=== PATIENT | female | born 1985 | race Caucasian/White ===

== ENCOUNTER 2016-07-13 15:28 | Emergency (ER) | payer MEDICARE, MEDICAID ==
[2016-07-13 17:19] LABS: Mono Internal Control QC Line Present
[2016-07-13] MEDS ORDERED: Clarithromycin TAB* 250 MG PO ONE (17:37)
[2016-07-13] MEDS ORDERED: Ibuprofen TAB* 800 MG PO ONE (17:38)
--- NOTE | 2016-07-13 17:44 | ED ---
I, Oh,Soohyun, scribed for Seth Pierson MD on 07/13/16 at 1626 . Throat Pain/Nasal Congestion - HPI Summary HPI Summary: This 31 y/o female presents to ED for moderate to severe sore throat since this morning. Pt reports general "achy" myalgia since 2 days ago. "I slept all day yesterday". Swallowing makes throat pain worse. She reports possible sick contact from her child who was dx with strep throat and was under abx tx. PMHx includes scoliosis, asthma, and von Willebrand. Pt is nondrinker and current smoker. FHx is positive for DM. - History of Current Complaint Chief Complaint: EDThroatPain Time Seen by Provider: 07/13/16 16:01 Hx Obtained From: Patient, Medical Records Onset/Duration: Gradual Onset Severity: Moderate Cough: None Related History: Smoking - Allergies/Home Medications Allergies/Adverse Reactions: Allergies Allergy/AdvReac Type Severity Reaction Status Date / Time Penicillin G Allergy Intermediate Difficulty Verified 07/13/16 15:32 Breathing PMH/Surg Hx/FS Hx/Imm Hx Endocrine/Hematology History: Reports: Other Endocrine/Hematological Disorders - Type 1 Von Willebrand Disease Denies: Hx Diabetes, Hx Thyroid Disease Comment Only: Hx Anticoagulant Therapy - Von Willenbrand's Syndrome Cardiovascular History: Denies: Hx Congestive Heart Failure, Hx Hypertension, Hx Pacemaker/ICD Comment Only: Other Cardiovascular Problems/Disorders - brother dx with lung cancer Respiratory History: Reports: Hx Asthma Denies: Hx Chronic Obstructive Pulmonary Disease (COPD) GI History: Denies: Hx Ulcer History: Denies: Hx Dialysis, Hx Renal Disease Musculoskeletal History: Reports: Hx Scoliosis Sensory History: Denies: Hx Hearing Aid Neurological History: Reports: Hx Headaches Denies: Hx Dementia, Hx Seizures, Other Neuro Impairments/Disorders Psychiatric History: Denies: Hx Panic Disorder, Hx Substance Abuse - Surgical History Surgery Procedure, Year, and Place: jaw wired bilateral 1996 Infectious Disease History: No Infectious Disease History: Denies: Hx Hepatitis, Hx Human Immunodeficiency Virus (HIV), Traveled Outside the [place] in Last 30 Days - Family History Known Family History: Positive: Diabetes, Blood Disorder - Von Willebrand, Other - [place] - Social History Alcohol Use: None Hx Substance Use: No Substance Use Type: Reports: None Hx Tobacco Use: Yes Smoking Status (MU): Heavy Every Day Tobacco Smoker Type: Cigarettes Amount Used/How Often: 1/2 PPD Review of Systems Negative: Fever Positive: Sore Throat Positive: Myalgia - general Negative: Anxious, Depressed All Other Systems Reviewed And Are Negative: Yes Physical Exam - Summary Physical Exam Summary: Vital signs: Reviewed Gen.: Patient is a well-developed and nourished female in no acute distress. Patient is lying comfortably on the stretcher. Head: Normacephalic and atraumatic Eyes: PERRLA, EOMI x2. Ears: Right and Left ear canal and TM WNL Nose and mouth: Positive pharyngeal erythema and exudate. Neck: Supple, no lymphadenopathy, no JVD Lungs: CTA B/L CVS: S1 & S2 present. No murmurs appreciated. ABDOMEN: Soft, non-tender. No signs of distention. No rebound no guarding, and no masses palpated. Bowel sounds are normal. EXTREMITIES: FROM in all major joints, no edema, no cyanosis or clubbing. NEURO: Alert and oriented x 3. No acute neurological deficits. Speech is normal and follows commands. SKIN: Dry and warm Triage Information Reviewed: Yes Vital Signs On Initial Exam: Initial Vitals Temp Pulse Resp BP Pulse Ox 97.8 F 91 16 141/74 100 07/13/16 15:32 07/13/16 15:32 07/13/16 15:32 07/13/16 15:32 07/13/16 15:32 Vital Signs Reviewed: Yes Diagnostics - Vital Signs Vital Signs Temp Pulse Resp BP Pulse Ox 07/13/16 15:32 97.8 F 91 16 141/74 100 - Laboratory Lab Results: Monospot -- negative Rapid Strep -- negative Lab Statement: Any lab studies that have been ordered have been reviewed, and results considered in the medical decision making process. Re-Evaluation - Re-Evaluation First Eval Re-Evaluation Time: 17:41 Comment: MD in room to update pt on monospot and rapid strep and discuss the plan of care involving discharge and outpatient f/u. EENT Course/Dx - Course Assessment/Plan: This 31 y/o female presents to ED for moderate to severe sore throat since this morning. Pt reports general "achy" myalgia since 2 days ago. "I slept all day yesterday". Swallowing makes throat pain worse. She reports possible sick contact from her child who was dx with strep throat and was under abx tx. PMHx includes scoliosis, asthma, and von Willebrand. Pt is nondrinker and current smoker. FHx is positive. Rapid strep negative. Infectious mononucleosis negative. Since patient was exposed to strep and her pharynx and tonsils are erythematous, with which patches she will treated with clarithromycin since she is allergic to penicillin. I discussed all the findings and test results with the patient. Patient was instructed to return to the emergency room immediately if any of the symptoms return or worsens. Plan of care was discussed with the patient and understands and agrees. All questions were answered at patient satisfaction. There were no further complaints or concerns. Lung exam before discharge: CTA B/L. Good air exchange. No wheezing or crackles heard. CVS: S1 and S2 present. No murmurs appreciated. Patient is alert and oriented x 3. Patient is hemodynamically stable. Patient will be discharged home with follow up PCP in the next 2-3 days - Differential Diagnoses Differential Diagnoses: Other - URI, Pharyngitis, tonsillitis, mononucleosis - Diagnoses Provider Diagnoses: Pharyngitis Discharge - Discharge Plan Condition: Stable Disposition: HOME Prescriptions: Clarithromycin TAB* [Biaxin 250 MG TAB*] 250 mg PO BID #20 tab Patient Education Materials: Pharyngitis (ED), Clarithromycin (By mouth) Referrals: Darinel Hancock NP [Primary Care Provider] - 2 Days The documentation as recorded by the Silvio harris Soohyun accurately reflects the service I personally performed and the decisions made by , Seth Pierson MD.
[2016-07-13] MEDS ORDERED: Famotidine TAB* 20 MG PO ONE (18:26)
[2016-07-13 18:53] VITALS: BP 140/70
== END 2016-07-13 18:52 | disposition home or self-care (01) ==
LOC: ED 15:28
DX: J02.9 Acute pharyngitis, unspecified (principal); M79.1 Myalgia; F17.210 Nicotine dependence, cigarettes, uncomplicated
CPT/HCPCS: 36415; 86308; 87651; 99282; A9270-GY

== ENCOUNTER 2016-07-23 14:04 | Emergency (ER) | payer MEDICARE, MEDICAID ==
[2016-07-23 14:33] VITALS: BP 106/80
--- NOTE | 2016-07-23 15:03 | UC ---
Ear Complaint HPI - HPI Summary HPI Summary: RIGHT EAR PAIN FOR TWO WEEKS. HAS BEEN ON AZITHROMYCIN, THEN LEVOQUIN. NO CHANGE IN EAR PAIN. - History of Current Complaint Chief Complaint: UCEar Stated Complaint: EAR PAIN Time Seen by Provider: 07/23/16 14:42 Hx Obtained From: Patient, Family/Fructose Loader Hx Last Menstrual Period: unknown ?: Yes Onset/Duration: Gradual Onset, Lasting Weeks, Still Present Severity Initially: Moderate Severity Currently: Moderate Associated Signs/Symptoms: Positive: URI Symptoms - TWO WEEKS OF ONGOING RIGHT EAR PAIN - Allergies/Home Medications Allergies/Adverse Reactions: Allergies Allergy/AdvReac Type Severity Reaction Status Date / Time Penicillin G Allergy Intermediate Difficulty Verified 07/23/16 14:18 Breathing Home Medications: Home Medications Budesonide/Formote 80/4.5(NF) [Symbicort 80/4.5 (NF)] mg PO DAILY 07/23/16 [ History] DULoxetine DR CAP* [Cymbalta CAP*] 30 mg PO DAILY 07/23/16 [History Confirmed ] Omeprazole CAP* [Prilosec CAP* 20 MG] 20 mg PO DAILY 07/23/16 [History Confirmed 07/23/16] PMH/Surg Hx/FS Hx/Imm Hx Previously Healthy: Yes Endocrine History Of: Denies: Diabetes, Thyroid Disease Cardiovascular History Of: Denies: Cardiac Disorders, Hypertension, Pacemaker/ICD, Congestive Heart Failure Respiratory History Of: Reports: Asthma Denies: COPD GI/ History Of: Denies: Gastroesophageal Reflux, Ulcer, Renal Disease Neurological History Of: Denies: CVA, Dementia, Seizures Other History Of: Comment Only: Anticoagulant Therapy - Von Willenbrand's Syndrome - Surgical History Surgical History: Yes Surgery Procedure, Year, and Place: jaw wired bilateral 1996 - Family History Known Family History: Positive: Diabetes, Blood Disorder - Von Willebrand, Other - [place] - Social History Occupation: Disabled Lives: With Family Alcohol Use: Rare Substance Use Type: None Smoking Status (MU): Heavy Every Day Tobacco Smoker Type: Cigarettes Amount Used/How Often: 1/2 PPD Household Exposure Type: Cigarettes Cessation Counseling: Counseled 3+Min - 10 Min Review of Systems Constitutional: Negative Skin: Negative Eyes: Negative ENT: Ear Ache Respiratory: Negative Cardiovascular: Negative Gastrointestinal: Negative Genitourinary: Negative Motor: Negative Neurovascular: Negative Musculoskeletal: Negative Neurological: Negative Psychological: Negative All Other Systems Reviewed And Are Negative: Yes Physical Exam Triage Information Reviewed: Yes Appearance: Well-Appearing, Well-Nourished, Pain Distress Vital Signs: Initial Vital Signs Temp 98.7 F 07/23/16 14:10 Pulse 94 07/23/16 14:10 Resp 18 07/23/16 14:10 BP 106/80 07/23/16 14:10 Pulse Ox 98 07/23/16 14:10 Vital Signs Reviewed: Yes Eye Exam: Normal ENT: Positive: TM bulging - RIGHT EAR, TM dull, TM red, Other: - RIGHT EAR EDEMA OF EAC Dental Exam: Normal Neck exam: Normal Neck: Positive: Supple, Nontender Respiratory Exam: Normal Respiratory: Positive: Chest non-tender, Lungs clear, Normal breath sounds Cardiovascular Exam: Normal Cardiovascular: Positive: RRR, No Murmur, Pulses Normal, Brisk Capillary Refill Abdominal Exam: Normal Musculoskeletal Exam: Normal Neurological Exam: Normal Psychological Exam: Normal Skin Exam: Normal Ear Complaint Course/Dx - Differential Dx/Diagnosis Differential Diagnosis/HQI/PQRI: Otitis Externa, Otitis Media, URI Provider Diagnoses: RIGHT EAR OTITIS MEDIA/OTITIS EXTERNA Discharge - Discharge Plan Condition: Stable Disposition: HOME Prescriptions: Clindamycin Cap(NF) [Cleocin 300 mg Cap(NF)] 300 mg PO TID #21 cap Neomyc/Polym/HC 1% OTIC SUSP* [Cortisporin Otic Susp 1%*] 4 drop LEFT EAR QID # 1 btl Nystatin SUSPENSION* 100,000 unit MT BID #20 ml Patient Education Materials: Otitis Externa (ED), Oral Candidiasis (ED), Otitis Media (ED) Referrals: Ivan Escobdeo MD [Medical Doctor] - Darinel Hancock NP [Primary Care Provider] -
== END 2016-07-23 15:15 | disposition home or self-care (01) ==
LOC: UCEAST 14:04
DX: H66.91 Otitis media, unspecified, right ear (principal); H60.91 Unspecified otitis externa, right ear; Z88.0 Allergy status to penicillin; F17.210 Nicotine dependence, cigarettes, uncomplicated
CPT/HCPCS: 99212; G0463

== ENCOUNTER 2016-09-25 09:03 | Emergency (ER) | payer MEDICARE, MEDICAID ==
[2016-09-25] MEDS ORDERED: NS 0.9% 1000 ML* 2,000 ML IV ONE (10:20)
[2016-09-25 10:50] LABS: Urine Bacteria Absent (Absent); Urine Bilirubin Negative (Negative); Urine Glucose Negative (Negative); Urine Nitrite Negative (Negative)
[2016-09-25] MEDS ORDERED: NS 0.9% 1000 ML* 1,000 ML IV ONE (11:10)
[2016-09-25] MEDS ORDERED: Morphine INJ* 4 MG/ML 1 ML SYRINGE IV ONE (11:10)
[2016-09-25] MEDS ORDERED: Ondansetron INJ* 2 MG/ML VIAL IV ONE (11:10)
[2016-09-25 11:27] LABS: Hematocrit 41 % (35-47); Hemoglobin 13.6 g/dl (12.0-16.0); Mean Corpuscular HGB Conc 33 g/dl (31-36); Mean Corpuscular Hemoglobin 29 pg (27-31); Mean Corpuscular Volume 86 fL (80-97); Mean Platelet Volume 7 um3 (7.4-10.4); Red Blood Count 4.75 10^6/ul (4.0-5.4); Red Cell Distribution Width 15 % (10.5-15); White Blood Count 10.3 10^3/ul (3.5-10.8)
[2016-09-25 11:46] LABS: ALT 13 U/L (7-52); AST 17 U/L (13-39); Albumin 3.9 g/dL (3.2-5.2); Alkaline Phosphatase 124 U/L (34-104); Amylase 39 U/L (29-103); Anion Gap 8 mmol/L (2-11); BUN/Creatinine Ratio 16.1 (8-20); Blood Urea Nitrogen 10 mg/dL (6-24); C Reactive Protein 107.76 mg/L (< 5.00); CO2 Carbon Dioxide 24 mmol/L (22-32); Calcium 9.1 mg/dL (8.6-10.3); Chloride 103 mmol/L (101-111); EGFR African American 143.5 (>60); EGFR Non-African American 111.6 (>60); Globulin 3.1 g/dL (2-4); Glucose 107 mg/dL (70-100); Lipase 27 U/L (11.0-82.0); Potassium 3.2 mmol/L (3.5-5.0); Sodium 135 mmol/L (133-145)
[2016-09-25 12:48] LABS: Vitamin B12 284 pg/mL (180-914)
[2016-09-25 14:36] VITALS: BP 98/61
--- NOTE | 2016-09-26 13:09 | CONSULT ---
Consult Consult: Ms. Cat's stool C&S grew out Salmonella so i sent a script for Justo and we will call her to let her know.
--- NOTE | 2016-09-27 10:30 | ED ---
Abdominal Pain/Female - HPI Summary HPI Summary: Pt here w/ chronic recurring ab pain associated w/ nausea, vomiting and diarrhea. This has been going on for over 1 year now. She reports being seen by PCP, ED providers at [facility] and a GI specialist. She has had labs, and U/ S and TVUS as well as colonoscopy all w/o definitive cause of her sx. She has been rx'd omeprazole but has not been able to take this d/t daily nausea and vomiting. She does not have an anti-emetic medication. She reports pain is not better or worse w/ anything she's tried including ibuprofen, acetaminophen, heat packs, omeprazole. She denies fever, chills, urinary sx, flank pain vaginal pain/irritation/discharge. She does note a h/o PCOS w/o treatment - was told there's nothing to do for this by PCP a few years ago. She admits periods are few and far between. TVUS reveals multiple follicles. Asked pt to think back to when this first started. She reports no new foods, beverages, water sources or sick contacts. Her appetite has been poor since this happened. Admits to heavy caffeine use, smoking and migraines. She is trying to cut back on smoking and caffeine. Also admits to heavy antibiotic use for various URI's - states she was placed on one after another after another over the past year. No known h/o c. diff and has not been tested for this but records do reveal neg h. pylori. No personal nor fam h/o Crohn's, UC, IBS, etc - History of Current Complaint Chief Complaint: EDAbdPain Stated Complaint: ABD PAIN/VOMITING/DIARRHEA Time Seen by Provider: 09/25/16 10:45 Hx Obtained From: Patient, Family/Cms Expert - female partner Hx Last Menstrual Period: unknown Pain Intensity: 0 Pain Scale Used: 0-10 Numeric Allergies/Adverse Reactions: Allergies Allergy/AdvReac Type Severity Reaction Status Date / Time Penicillins Allergy Difficulty Verified 08/15/16 14:23 Breathing PMH/Surg Hx/FS Hx/Imm Hx Previously Healthy: No - sx x 1 year Endocrine/Hematology History: Reports: Other Endocrine/Hematological Disorders - Type 1 Von Willebrand Disease, PCOS Denies: Hx Diabetes, Hx Thyroid Disease Comment Only: Hx Anticoagulant Therapy - Von Willenbrand's Syndrome Cardiovascular History: Denies: Hx Congestive Heart Failure, Hx Hypertension, Hx Pacemaker/ICD Comment Only: Other Cardiovascular Problems/Disorders - brother dx with lung cancer Respiratory History: Reports: Hx Asthma Denies: Hx Chronic Obstructive Pulmonary Disease (COPD) GI History: Reports: Hx Gastroesophageal Reflux Disease - Rx'd ompeprazole Denies: Hx Cirrhosis, Hx Crohn's Disease, Hx Diverticulosis, Hx Gall Bladder Disease, Hx Gastrointestinal Bleed, Hx Hiatal Hernia, Hx Irritable Bowel, Hx Jaundice, Hx Obstructive Bowel, Hx Ileostomy, Hx Ulcer, Other GI Disorders History: Denies: Hx Dialysis, Hx Kidney Infection, Hx Kidney Stones, Hx Renal Disease Musculoskeletal History: Reports: Hx Scoliosis Sensory History: Denies: Hx Hearing Aid Neurological History: Reports: Hx Headaches - rx'd med but hasn't started yet Denies: Hx Dementia, Hx Seizures, Other Neuro Impairments/Disorders Psychiatric History: Reports: Hx Panic Disorder - SEVERE ANXIETY Denies: Hx Substance Abuse - Surgical History Surgery Procedure, Year, and Place: jaw wired bilateral 1996-REMOVED. CERVICAL BIOPSY. STOMACH BIOPSY. TEETH REMOVED Infectious Disease History: No Infectious Disease History: Denies: Hx Clostridium Difficile, Hx Hepatitis, Hx Human Immunodeficiency Virus (HIV), Hx of Known/Suspected MRSA, Hx Shingles, Hx Known/Suspected VRE, Traveled Outside the [place] in Last 30 Days - Family History Known Family History: Positive: Diabetes, Blood Disorder - Von Willebrand, Other - [place] - Social History Lives: With Family Alcohol Use: Rare Hx Substance Use: No Substance Use Type: Reports: None Hx Tobacco Use: Yes Smoking Status (MU): Current Every Day Smoker Type: Cigarettes Amount Used/How Often: 1/2 PPD Review of Systems Positive: Fatigue. Negative: Fever, Chills Eyes: Negative ENT: Other - chronic URI sx - currently has ear pressure Cardiovascular: Negative Respiratory: Negative Gastrointestinal: Other - see HPI Genitourinary: Negative Musculoskeletal: Negative Skin: Negative Positive: Headache - intermittent migraines - see HPI Psychological: Normal - concerned, frustrated All Other Systems Reviewed And Are Negative: Yes Physical Exam Triage Information Reviewed: Yes Vital Signs On Initial Exam: Initial Vitals Temp Pulse Resp BP Pulse Ox 96.8 F 87 22 109/69 100 09/25/16 09:04 09/25/16 09:04 09/25/16 09:04 09/25/16 09:04 09/25/16 09:04 Vital Signs Reviewed: Yes Appearance: Positive: Ill-Appearing - appears fatigued, Pain Distress - lying in position, covered in blankets on stretcher w/ lights out upon entrance to room - partner is w/ her and both are concerned Skin: Positive: Warm, Dry Head/Face: Positive: Normal Head/Face Inspection Eyes: Positive: Normal, Conjunctiva Clear ENT: Positive: Hearing grossly normal, Pharynx normal - mucosa moist Dental: Positive: Gross Decay/Caries @ - poor dentition in general Neck: Positive: Supple, Nontender Respiratory/Lung Sounds: Positive: Breath Sounds Present Cardiovascular: Positive: Normal, RRR, Pulses are Symmetrical in both Upper and Lower Extremities Abdomen Description: Positive: No Organomegaly, Soft, Other: - generalized TTP - no focal area - no rebouding. Negative: CVA Tenderness (R), CVA Tenderness (L ) Bowel Sounds: Positive: Present Pelvic Exam: Positive: other - deferred Musculoskeletal: Positive: Normal, Strength/ROM Intact Neurological: Positive: Normal, Sensory/Motor Intact, Alert, Oriented to Person Place, Time, CN Intact II-III Psychiatric: Positive: Normal - calm, but concerned Diagnostics - Vital Signs Vital Signs Temp Pulse Resp BP Pulse Ox 09/25/16 14:38 96.9 F 85 18 98/61 09/25/16 14:30 85 98/61 96 09/25/16 14:00 84 102/57 97 09/25/16 13:30 88 112/67 98 09/25/16 13:00 77 123/58 99 09/25/16 12:30 77 109/61 99 09/25/16 12:00 85 90/54 98 09/25/16 11:30 81 110/63 97 09/25/16 11:24 18 09/25/16 11:00 86 20 131/88 98 09/25/16 10:30 89 19 114/67 95 09/25/16 10:00 94 17 120/70 96 09/25/16 09:30 91 18 120/74 95 09/25/16 09:17 89 18 99 09/25/16 09:16 126/73 09/25/16 09:07 96.9 F 112 22 109/69 100 09/25/16 09:04 96.8 F 87 22 109/69 100 - Laboratory Lab Results: Lab Results 09/25/16 09/25/16 09/25/16 Range/Units 09:47 09:47 11:17 WBC 10.3 (3.5-10.8) 10^3/ul RBC 4.75 (4.0-5.4) 10^6/ul Hgb 13.6 (12.0-16.0) g/dl Hct 41 (35-47) % MCV 86 (80-97) fL MCH 29 (27-31) pg MCHC 33 (31-36) g/dl RDW 15 (10.5-15) % Plt Count 290 (150-450) 10^3/ul MPV 7 L (7.4-10.4) um3 Neut % (Auto) 85.8 H (38-83) % Lymph % (Auto) 9.3 L (25-47) % [place] % (Auto) 4.2 (1-9) % Eos % (Auto) 0.1 (0-6) % Baso % (Auto) 0.6 (0-2) % Absolute Neuts (auto) 8.9 H (1.5-7.7) 10^3/ul Absolute Lymphs (auto) 1.0 (1.0-4.8) 10^3/ul Absolute Monos (auto) 0.4 (0-0.8) 10^3/ul Absolute Eos (auto) 0 (0-0.6) 10^3/ul Absolute Basos (auto) 0.1 (0-0.2) 10^3/ul Absolute Nucleated RBC 0 10^3/ul Nucleated RBC % 0 Sodium (133-145) mmol/L Potassium (3.5-5.0) mmol/L Chloride (101-111) mmol/L Carbon Dioxide (22-32) mmol/L Anion Gap (2-11) mmol/L BUN (6-24) mg/dL Creatinine (0.51-0.95) mg/dL Est GFR ( Amer) (>60) Est GFR (Non-Af Amer) (>60) BUN/Creatinine Ratio (8-20) Glucose (70-100) mg/dL Lactic Acid (0.5-2.0) mmol/L Calcium (8.6-10.3) mg/dL Magnesium (1.9-2.7) mg/dL Total Bilirubin (0.2-1.0) mg/dL AST (13-39) U/L ALT (7-52) U/L Alkaline Phosphatase (34-104) U/L C-Reactive Protein (< 5.00) mg/L Total Protein (6.4-8.9) g/dL Albumin (3.2-5.2) g/dL Globulin (2-4) g/dL Albumin/Globulin Ratio (1-3) Amylase (29-103) U/L Lipase (11.0-82.0) U/L Vitamin B12 (180-914) pg/mL TSH (0.34-5.60) mcIU/mL Beta HCG, Quant mIU/mL Urine Color Clemencia Urine Appearance Cloudy Urine pH 7.0 (5-9) Ur Specific [place] 1.027 (1.010-1.030) Urine Protein 2+(100 mg/dl) H (Negative) Urine Ketones 1+ H (Negative) Urine Blood Negative (Negative) Urine Nitrate Negative (Negative) Urine Bilirubin Negative (Negative) Urine Urobilinogen Negative (Negative) Ur Leukocyte Esterase Trace H (Negative) Urine WBC (Auto) Absent (Absent) Urine RBC (Auto) 1+(3-5/hpf) H (Absent) Ur Squamous Epith Cells Present H (Absent) Urine Bacteria Absent (Absent) Urine Glucose Negative (Negative) Parasite Exam See comment 09/25/16 09/25/16 Range/Units 11:17 11:17 WBC (3.5-10.8) 10^3/ul RBC (4.0-5.4) 10^6/ul Hgb (12.0-16.0) g/dl Hct (35-47) % MCV (80-97) fL MCH (27-31) pg MCHC (31-36) g/dl RDW (10.5-15) % Plt Count (150-450) 10^3/ul MPV (7.4-10.4) um3 Neut % (Auto) (38-83) % Lymph % (Auto) (25-47) % [place] % (Auto) (1-9) % Eos % (Auto) (0-6) % Baso % (Auto) (0-2) % Absolute Neuts (auto) (1.5-7.7) 10^3/ul Absolute Lymphs (auto) (1.0-4.8) 10^3/ul Absolute Monos (auto) (0-0.8) 10^3/ul Absolute Eos (auto) (0-0.6) 10^3/ul Absolute Basos (auto) (0-0.2) 10^3/ul Absolute Nucleated RBC 10^3/ul Nucleated RBC % Sodium 135 (133-145) mmol/L Potassium 3.2 L (3.5-5.0) mmol/L Chloride 103 (101-111) mmol/L Carbon Dioxide 24 (22-32) mmol/L Anion Gap 8 (2-11) mmol/L BUN 10 (6-24) mg/dL Creatinine 0.62 (0.51-0.95) mg/dL Est GFR ( Amer) 143.5 (>60) Est GFR (Non-Af Amer) 111.6 (>60) BUN/Creatinine Ratio 16.1 (8-20) Glucose 107 H (70-100) mg/dL Lactic Acid 1.3 (0.5-2.0) mmol/L Calcium 9.1 (8.6-10.3) mg/dL Magnesium 2.0 (1.9-2.7) mg/dL Total Bilirubin 0.70 (0.2-1.0) mg/dL AST 17 (13-39) U/L ALT 13 (7-52) U/L Alkaline Phosphatase 124 H (34-104) U/L C-Reactive Protein 107.76 H (< 5.00) mg/L Total Protein 7.0 (6.4-8.9) g/dL Albumin 3.9 (3.2-5.2) g/dL Globulin 3.1 (2-4) g/dL Albumin/Globulin Ratio 1.3 (1-3) Amylase 39 (29-103) U/L Lipase 27 (11.0-82.0) U/L Vitamin B12 284 (180-914) pg/mL TSH 0.70 (0.34-5.60) mcIU/mL Beta HCG, Quant < 0.60 mIU/mL Urine Color Urine Appearance Urine pH (5-9) Ur Specific [place] (1.010-1.030) Urine Protein (Negative) Urine Ketones (Negative) Urine Blood (Negative) Urine Nitrate (Negative) Urine Bilirubin (Negative) Urine Urobilinogen (Negative) Ur Leukocyte Esterase (Negative) Urine WBC (Auto) (Absent) Urine RBC (Auto) (Absent) Ur Squamous Epith Cells (Absent) Urine Bacteria (Absent) Urine Glucose (Negative) Parasite Exam Result Diagrams: 09/25/16 11:17 09/25/16 11:17 Lab Statement: Any lab studies that have been ordered have been reviewed, and results considered in the medical decision making process. Re-Evaluation - Re-Evaluation First Eval Change: Improved - nausea and pain improved s/p zofran and morphine as well as IVF Abdominal Pain Fem Course/Dx - Course Course Of Treatment: Pt presents w/ chronic, recurring ab pain, N/V/D w/o known cause. Has had ED and outpt w/u w/o dx. W/ h/o heavy anbx use, will cx stool. She has dehydration here today and tolerating PO w/ zofran -will write rx for home use and advised close f/u through PCP to further investigate possible gallbladder dysfunction, tx for PCOS and possibly IBS w/ migraine component. Also discussed importance of diet controlling sx (see d/c for details). Pt acknowleges her use of caffeine and nicotine do not help condition and she will continue to decrease/eliminate use. She also agrees to f/u w/ PCP and GI and will return to ED in the meantime if danger s/sx present. - Diagnoses Provider Diagnoses: Chronic abdominal pain, Chronic vomiting, Chronic diarrhea, Dehydration Discharge - Discharge Plan Condition: Stable Disposition: HOME Prescriptions: Ciprofloxacin TAB* [Cipro Tab*] 500 mg PO BID #20 tab Ondansetron ODT TAB* [Zofran 4 MG Odt TAB*] 4 mg PO Q8H PRN #9 tab.odt PRN Reason: Nausea Patient Education Materials: Dehydration (ED), Acute Nausea and Vomiting (ED), Chronic Diarrhea (ED), Abdominal Pain (ED) Referrals: Darinel Hancock, [facility] [Primary Care Provider] - Additional Instructions: The definitive cause of your nausea, vomiting, diarrhea and abdominal pain was not identified today. However previous test reveal a liver hemangioma which needs follow-up. You also have not had a HIDA CCK yet and your Alk Phos level remains elevated from previous labs - this test may better identify if your gallbladder is working appropriately. Furthermore, you shared you have been diagnosed with PCOS which is untreated - confirmed on TVUS in past. This may be addressed with your PCP. You also reported a heavy history of antibiotic use since symptoms started over 1 year ago. Your stool is being tested for c. diff, a GI infection caused by overuse of antibiotics. You may start probiotics to help replace "good" bacteria /gut darci. Follow-up with PCP next week to review findings and discuss future assessments/ treatments as needed. It is advised that you reduce caffeine as well as this stimulates the gastrointestinal tract and may make your current symptoms worse (ie. coffee, tea , soda, iced tea, chocolate, etc). Also avoid NSAID's as these can upset your stomach. You may try a BRAT diet to help reduce diarrhea (Banana, Rice, Applesauce, Rabbit Hash) and avoid spicy, greasy, fatty foods. Stay hydrated with water, gatorade, gingerale. Restart meds as soon as able. *If you develop fever, chills, return of nausea, vomiting, intractable diarrhea , return to ED
== END 2016-09-25 14:42 | disposition home or self-care (01) ==
LOC: ED 09:03
DX: R10.9 Unspecified abdominal pain (principal); R51 Headache; E86.0 Dehydration; R11.2 Nausea with vomiting, unspecified; R19.7 Diarrhea, unspecified; F17.210 Nicotine dependence, cigarettes, uncomplicated; R53.83 Other fatigue
CPT/HCPCS: 36415; 80053; 81003; 81015; 82150; 82607; 83605; 83690; 83735; 84443; 84702; 85025; 86140; 87045; 87046; 87077; 87086; 87177; 87209; 87328; 87329; 87493; 87899; 96374; 96375; 99283; J2270; J2405

== ENCOUNTER 2016-10-01 21:38 | Emergency (ER) | payer MEDICARE, MEDICAID ==
[2016-10-01 21:49] VITALS: BP 137/91
[2016-10-01] MEDS ORDERED: Ketorolac INJ* 60 MG/2 ML VIAL IM ONE (22:18)
[2016-10-01] MEDS ORDERED: predniSONE TAB* 20 MG PO ONE (22:18)
--- NOTE | 2016-10-01 22:25 | ED ---
Throat Pain/Nasal Congestion - HPI Summary HPI Summary: Pt here w/ Rt sided otalgia, sinus and dental pain x > 1 week. Worse tonight so came in for assessment. Denies fever, chills, ST, trouble breathing or swallowing. Does report filling fell out of a tooth on the lower Rt side prior to this - drained but stopped draining - has been using saline mouth rinses. She 's taking cipro which she started yesterday for recent identification of salmonella GI infection. She also admits to chronic/recurring ear and sinus pain recently assessed by MRI and reveals thickening of sinuses w/ retention cyst on RT. She also takes claritin and uses a nasal spray which she stopped using in the past couple of days. - History of Current Complaint Chief Complaint: EDEarPain Time Seen by Provider: 10/01/16 22:06 Hx Obtained From: Patient - Allergies/Home Medications Allergies/Adverse Reactions: Allergies Allergy/AdvReac Type Severity Reaction Status Date / Time Penicillins Allergy Difficulty Verified 08/15/16 14:23 Breathing PMH/Surg Hx/FS Hx/Imm Hx Previously Healthy: Yes Endocrine/Hematology History: Reports: Other Endocrine/Hematological Disorders - Type 1 Von Willebrand Disease, PCOS Denies: Hx Diabetes, Hx Thyroid Disease Comment Only: Hx Anticoagulant Therapy - Von Willenbrand's Syndrome Cardiovascular History: Denies: Hx Congestive Heart Failure, Hx Hypertension, Hx Pacemaker/ICD Comment Only: Other Cardiovascular Problems/Disorders - brother dx with lung cancer Respiratory History: Reports: Hx Asthma, Hx Seasonal Allergies - uses anti- histamine, PO and nasal spray Denies: Hx Chronic Obstructive Pulmonary Disease (COPD) GI History: Reports: Hx Gastroesophageal Reflux Disease - Rx'd omeprazole , Other GI Disorders - salmomella GI infection, currently receiving anbx Denies: Hx Cirrhosis, Hx Crohn's Disease, Hx Diverticulosis, Hx Gall Bladder Disease, Hx Gastrointestinal Bleed, Hx Hiatal Hernia, Hx Irritable Bowel, Hx Jaundice, Hx Obstructive Bowel, Hx Ileostomy, Hx Ulcer History: Denies: Hx Dialysis, Hx Kidney Infection, Hx Kidney Stones, Hx Renal Disease Musculoskeletal History: Reports: Hx Scoliosis Sensory History: Denies: Hx Hearing Aid EENT History: Reports: Other - Rt sinus rentention cyst Neurological History: Reports: Hx Headaches - rx'd med but hasn't started yet Denies: Hx Dementia, Hx Seizures, Other Neuro Impairments/Disorders Psychiatric History: Reports: Hx Panic Disorder - SEVERE ANXIETY Denies: Hx Substance Abuse - Surgical History Surgery Procedure, Year, and Place: jaw wired bilateral 1996-REMOVED. CERVICAL BIOPSY. STOMACH BIOPSY. TEETH REMOVED Infectious Disease History: Denies: Hx Clostridium Difficile, Hx Hepatitis, Hx Human Immunodeficiency Virus (HIV), Hx of Known/Suspected MRSA, Hx Shingles, Hx Known/Suspected VRE, Traveled Outside the [place] in Last 30 Days - Family History Known Family History: Positive: Diabetes, Blood Disorder - Von Willebrand, Other - [place] - Social History Alcohol Use: Rare Hx Substance Use: No Substance Use Type: Reports: None Hx Tobacco Use: Yes Smoking Status (MU): Current Every Day Smoker Type: Cigarettes Amount Used/How Often: 1/2 PPD Review of Systems Negative: Fever, Chills Negative: Photophobia, Blurred Vision, Diplopia, Drainage, Erythema ENT: Other - see HPI Positive: Dental Pain, Ear Ache. Negative: Sore Throat, Nasal Discharge Cardiovascular: Negative Negative: Chest Pain Respiratory: Negative Negative: Shortness Of Breath, Cough Gastrointestinal: Negative Negative: Abdominal Pain, Vomiting, Diarrhea, Nausea Positive: no symptoms reported Skin: Negative Negative: Rash Positive: Headache, Paresthesia - face is tingling. Negative: Weakness, Numbness, Syncope Positive: Anxious All Other Systems Reviewed And Are Negative: Yes Physical Exam Triage Information Reviewed: Yes Vital Signs On Initial Exam: Initial Vitals Temp Pulse Resp BP Pulse Ox 98.1 F 72 22 137/91 98 10/01/16 21:40 10/01/16 21:40 10/01/16 21:40 10/01/16 21:40 10/01/16 21:40 Vital Signs Reviewed: Yes Appearance: Positive: Well-Appearing, Well-Nourished, Pain Distress Skin: Positive: Warm, Dry - no erythema, no ecchymosis, no edema of face Head/Face: Positive: Other - Rt maxillary sinus is TTP Eyes: Positive: Normal, EOMI. Negative: Conjunctiva Inflammed, Discharge ENT: Positive: Hearing grossly normal, Pharynx normal, Nasal congestion - boggy turbinates - moist, clear, TMs normal. Negative: Tonsillar swelling, Tonsillar exudate Dental: Positive: Gross Decay/Caries @ - #29 w/ small decay hole along base of tooth, touching gingiva along buccal mucosa. Negative: Abscess @ Neck: Positive: Supple, Nontender, No Lymphadenopathy Respiratory/Lung Sounds: Positive: Clear to Auscultation, Breath Sounds Present. Negative: Stridor Cardiovascular: Positive: Normal, RRR Musculoskeletal: Positive: Normal, Strength/ROM Intact Neurological: Positive: Normal, Alert, Oriented to Person Place, Time, CN Intact II-III Psychiatric: Positive: Anxious Diagnostics - Vital Signs Vital Signs Temp Pulse Resp BP Pulse Ox 10/01/16 21:40 98.1 F 72 22 137/91 98 - Laboratory Lab Statement: Any lab studies that have been ordered have been reviewed, and results considered in the medical decision making process. EENT Course/Dx - Diagnoses Provider Diagnoses: Mucous retention cyst of maxillary sinus Discharge - Discharge Plan Condition: Stable Disposition: HOME Prescriptions: predniSONE TAB* [Deltasone TAB*] 40 mg PO DAILY #10 tab Patient Education Materials: Dental Abscess (ED), Sinusitis (ED) Referrals: Ivan Escobedo MD [Medical Doctor] - Additional Instructions: You appear to have a cyst in your right maxillary sinus. This may be causing your chronic ear and sinus pain as well as contributing to your headaches. You have an appointment to follow-up with ENT October 09 - it is advised that you call tomorrow for earlier appointment if possible. In the meantime, you are being prescribed a steroid to reduce inflammation. Take with food. It is also advised that you restart your anti-histamine (claritin or comparable brand) and nasal spray to aid in reduction of swelling thereby reducing pain. *If you develop fever, chills, difficulty swallowing or breathing, change in vision, pain with eye movement, return to ED NOTE: it is also advised that you follow-up with your dentist RIGOBERTO to address your dental issue. A temporary filling was not placed today for fear of blocking in an infection. Complete antibiotic you are currently taking and follow-up with dentist this week as well.
== END 2016-10-01 22:50 | disposition home or self-care (01) ==
LOC: ED 21:38
DX: M27.40 Unspecified cyst of jaw (principal); K08.89 Other specified disorders of teeth and supporting structures; R51 Headache; F17.210 Nicotine dependence, cigarettes, uncomplicated
CPT/HCPCS: 96372; 99282; J1885; J7512

== ENCOUNTER 2016-12-06 15:37 | Emergency (ER) | payer MEDICARE, MEDICAID ==
[2016-12-06] MEDS ORDERED: Morphine INJ* 2 MG/ML 1 ML SYRINGE IV ONE (16:06)
[2016-12-06] MEDS ORDERED: Ondansetron INJ* 2 MG/ML VIAL IV ONE (16:06)
[2016-12-06] MEDS: NS 0.9% 1000 ML* 2,000 ML IV ONE ×2 (16:20→17:32)
[2016-12-06 16:33] LABS: Hematocrit 42 % (35-47); Hemoglobin 13.8 g/dl (12.0-16.0); Mean Corpuscular HGB Conc 33 g/dl (31-36); Mean Corpuscular Hemoglobin 29 pg (27-31); Mean Corpuscular Volume 88 fL (80-97); Mean Platelet Volume 7 um3 (7.4-10.4); Red Blood Count 4.74 10^6/ul (4.0-5.4); Red Cell Distribution Width 14 % (10.5-15); White Blood Count 12.4 10^3/ul (3.5-10.8)
[2016-12-06 16:48] LABS: ALT 9 U/L (7-52); AST 17 U/L (13-39); Albumin 4.7 g/dL (3.2-5.2); Alkaline Phosphatase 113 U/L (34-104); Anion Gap 10 mmol/L (2-11); BUN/Creatinine Ratio 13.7 (8-20); Blood Urea Nitrogen 10 mg/dL (6-24); CO2 Carbon Dioxide 26 mmol/L (22-32); Calcium 9.8 mg/dL (8.6-10.3); Chloride 104 mmol/L (101-111); EGFR African American 118.8 (>60); EGFR Non-African American 92.4 (>60); Globulin 3.5 g/dL (2-4); Glucose 128 mg/dL (70-100); Lipase 54 U/L (11.0-82.0); Potassium 3.4 mmol/L (3.5-5.0); Sodium 140 mmol/L (133-145); Total Protein 8.2 g/dL (6.4-8.9)
[2016-12-06 17:09] LABS: Alcohol < 10 mg/dL (<10)
[2016-12-06] MEDS ORDERED: Iohexol 300* (CONTRAST) 10 ML SDV IV ONE (18:46)
--- NOTE | 2016-12-06 19:24 | RAD ---
INDICATION: Abdominal pain evaluate for appendicitis. COMPARISON: Comparison is made with a prior abdominal ultrasound from July 02, 2016. TECHNIQUE: A CT scan of the abdomen and pelvis was performed with intravenous and oral contrast following intravenous injection of 91 ml of Omnipaque 300 nonionic contrast. Contiguous axial sections were obtained from the lung bases through the symphysis pubis. Images were reconstructed in the coronal and sagittal planes. FINDINGS: The lung bases are clear. No pleural effusion is present. The liver and spleen are normal in size. There is a small hypodense hepatic lesion in the posterior segment of the right hepatic lobe measuring 1.1 cm in size which appears to correlate with the small hyperechoic lesion noted on the prior ultrasound study and appears unchanged in size. This is a nonspecific finding although the ultrasound characteristics would favor a hemangioma. No other focal abnormalities are seen. The pancreas appears to be within normal limits. No calcified gallstones are seen. The kidneys and adrenal glands are normal in size. No hydronephrosis is seen. No significant focal renal abnormality is seen. The aorta is normal in caliber and demonstrates homogeneous contrast opacification. No significant enlarged retroperitoneal lymph nodes are seen. There appears to be a small hiatal hernia. The stomach, small and large bowel appear nondistended. The appendix is within normal limits. There is no evidence for diverticulitis or colitis. There is a small periumbilical hernia containing fat. The uterus is anteverted and normal in size. No free intraperitoneal air or fluid is seen. There is a moderate lumbar scoliosis convex toward the left side. No significant focal osseous abnormality is seen. IMPRESSION: 1. NO EVIDENCE FOR ACUTE FINDING OR CAUSE FOR THE PATIENT'S ABDOMINAL PAIN IS SEEN. 2. SMALL HYPODENSE HEPATIC LESION UNCHANGED FROM THE PRIOR ULTRASOUND STUDY. THIS IS A NONSPECIFIC FINDING ALTHOUGH LIKELY REPRESENTS A HEMANGIOMA. RECOMMEND A FOLLOW-UP RIGHT UPPER QUADRANT ULTRASOUND IN 6 MONTHS TIME TO DEMONSTRATE STABILITY.
[2016-12-06] MEDS ORDERED: NS 0.9% 1000 ML* 1,000 ML IV ONE (20:11)
[2016-12-06 20:35] LABS: Urine Bilirubin Negative (Negative); Urine Glucose Negative (Negative); Urine Nitrite Negative (Negative)
--- NOTE | 2016-12-06 20:45 | ED ---
Makeda Heller SooYoung, scribed for Paul Godinez on 12/06/16 at 1628 . GI/ HPI - HPI Summary HPI Summary: A 31 y/o F presents to the ED c/o vomiting that began last night and ongoing all day after a large amount of ETOH consumption. Associate sx: diffuse abd pain , dry mouth, numbness in fingertips. PMHx of chronic vomiting and diarrhea, Salmonella. Denies: drug use. Denies PMHx: HTN, DM. Pt states she still has appendix. - History of Current Complaint Chief Complaint: EDGeneral Time Seen by Provider: 12/06/16 15:48 Stated Complaint: VOMITING Hx Obtained From: Patient Hx Last Menstrual Period: unknown Onset/Duration: Started Hours Ago, Still Present Timing: Constant Current Severity: Severe Pain Intensity: 8 - out of 10 Location of Pain: Diffuse Associated Signs and Symptoms: Positive: Diarrhea, Abdominal Pain, Other: - Numbness in fingertips. Dry mouth. - Allergy/Home Medications Allergies/Adverse Reactions: Allergies Allergy/AdvReac Type Severity Reaction Status Date / Time Penicillins Allergy Difficulty Verified 08/15/16 14:23 Breathing PMH/Surg Hx/FS Hx/Imm Hx Previously Healthy: No Endocrine/Hematology History: Reports: Other Endocrine/Hematological Disorders - Type 1 Von Willebrand Disease, PCOS Denies: Hx Diabetes, Hx Thyroid Disease Comment Only: Hx Anticoagulant Therapy - Von Willenbrand's Syndrome Cardiovascular History: Denies: Hx Congestive Heart Failure, Hx Hypertension, Hx Pacemaker/ICD Comment Only: Other Cardiovascular Problems/Disorders - brother dx with lung cancer Respiratory History: Reports: Hx Asthma, Hx Seasonal Allergies - uses anti- histamine, PO and nasal spray Denies: Hx Chronic Obstructive Pulmonary Disease (COPD) GI History: Reports: Hx Gastroesophageal Reflux Disease - Rx'd omeprazole , Other GI Disorders - salmomella GI infection, currently receiving anbx Denies: Hx Cirrhosis, Hx Crohn's Disease, Hx Diverticulosis, Hx Gall Bladder Disease, Hx Gastrointestinal Bleed, Hx Hiatal Hernia, Hx Irritable Bowel, Hx Jaundice, Hx Obstructive Bowel, Hx Ileostomy, Hx Ulcer History: Denies: Hx Dialysis, Hx Kidney Infection, Hx Kidney Stones, Hx Renal Disease Musculoskeletal History: Reports: Hx Scoliosis Sensory History: Denies: Hx Hearing Aid Neurological History: Reports: Hx Headaches - rx'd med but hasn't started yet Denies: Hx Dementia, Hx Seizures, Other Neuro Impairments/Disorders Psychiatric History: Reports: Hx Panic Disorder - SEVERE ANXIETY Denies: Hx Substance Abuse - Surgical History Surgery Procedure, Year, and Place: jaw wired bilateral 1996-REMOVED. CERVICAL BIOPSY. STOMACH BIOPSY. TEETH REMOVED Infectious Disease History: No Infectious Disease History: Denies: Hx Clostridium Difficile, Hx Hepatitis, Hx Human Immunodeficiency Virus (HIV), Hx of Known/Suspected MRSA, Hx Shingles, Hx Known/Suspected VRE, Traveled Outside the [place] in Last 30 Days - Family History Known Family History: Positive: Diabetes, Blood Disorder - Von Willebrand, Other - [place] - Social History Occupation: Disabled Lives: With Family Alcohol Use: Rare Hx Substance Use: No Substance Use Type: Reports: None Hx Tobacco Use: Yes Smoking Status (MU): Current Every Day Smoker Type: Cigarettes Amount Used/How Often: 1/2 PPD Review of Systems Positive: Other - Dry mouth. Positive: Abdominal Pain, Vomiting, Diarrhea Positive: Numbness - Fingertips All Other Systems Reviewed And Are Negative: Yes Physical Exam Triage Information Reviewed: Yes Vital Signs On Initial Exam: Initial Vitals Temp Pulse Resp BP Pulse Ox 98.1 F 60 20 129/81 100 12/06/16 15:40 12/06/16 15:40 12/06/16 15:40 12/06/16 15:40 12/06/16 15:40 Vital Signs Reviewed: Yes Appearance: Positive: Well-Appearing, No Pain Distress Skin: Positive: Warm, Skin Color Reflects Adequate Perfusion, Dry Head/Face: Positive: Normal Head/Face Inspection Eyes: Positive: EOMI, CLAUDIA ENT: Positive: Other - Dry mucus membranes. Neck: Positive: Supple, Nontender Respiratory/Lung Sounds: Positive: Clear to Auscultation, Breath Sounds Present Cardiovascular: Positive: RRR, Pulses are Symmetrical in both Upper and Lower Extremities Abdomen Description: Positive: Soft, Other: - Diffuse tenderness. Bowel Sounds: Positive: Present Musculoskeletal: Positive: Normal, Strength/ROM Intact Neurological: Positive: Normal, Sensory/Motor Intact, Alert, Oriented to Person Place, Time Diagnostics - Vital Signs Vital Signs Temp Pulse Resp BP Pulse Ox 12/06/16 15:47 95.4 F 44 20 103/86 100 12/06/16 15:40 98.1 F 60 20 129/81 100 - Laboratory Lab Results: Lab Results 12/06/16 12/06/16 12/06/16 Range/Units 16:10 16:10 16:10 WBC 12.4 H (3.5-10.8) 10^3/ul RBC 4.74 (4.0-5.4) 10^6/ul Hgb 13.8 (12.0-16.0) g/dl Hct 42 (35-47) % MCV 88 (80-97) fL MCH 29 (27-31) pg MCHC 33 (31-36) g/dl RDW 14 (10.5-15) % Plt Count 459 H (150-450) 10^3/ul MPV 7 L (7.4-10.4) um3 Neut % (Auto) 81.2 (38-83) % Lymph % (Auto) 14.4 L (25-47) % Dewey % (Auto) 3.5 (1-9) % Eos % (Auto) 0.4 (0-6) % Baso % (Auto) 0.5 (0-2) % Absolute Neuts (auto) 10.1 H (1.5-7.7) 10^3/ul Absolute Lymphs (auto) 1.8 (1.0-4.8) 10^3/ul Absolute Monos (auto) 0.4 (0-0.8) 10^3/ul Absolute Eos (auto) 0 (0-0.6) 10^3/ul Absolute Basos (auto) 0.1 (0-0.2) 10^3/ul Absolute Nucleated RBC 0.01 10^3/ul Nucleated RBC % 0.1 INR (Anticoag Therapy) 0.97 (0.89-1.11) APTT 28.3 (26.0-36.3) seconds Sodium 140 (133-145) mmol/L Potassium 3.4 L (3.5-5.0) mmol/L Chloride 104 (101-111) mmol/L Carbon Dioxide 26 (22-32) mmol/L Anion Gap 10 (2-11) mmol/L BUN 10 (6-24) mg/dL Creatinine 0.73 (0.51-0.95) mg/dL Est GFR ( Amer) 118.8 (>60) Est GFR (Non-Af Amer) 92.4 (>60) BUN/Creatinine Ratio 13.7 (8-20) Glucose 128 H (70-100) mg/dL Calcium 9.8 (8.6-10.3) mg/dL Total Bilirubin 0.60 (0.2-1.0) mg/dL AST 17 (13-39) U/L ALT 9 (7-52) U/L Alkaline Phosphatase 113 H (34-104) U/L Troponin I 0.00 (<0.04) ng/mL Total Protein 8.2 (6.4-8.9) g/dL Albumin 4.7 (3.2-5.2) g/dL Globulin 3.5 (2-4) g/dL Albumin/Globulin Ratio 1.3 (1-3) Lipase 54 (11.0-82.0) U/L Beta HCG, Quant 0.81 mIU/mL Urine Color Urine Appearance Urine pH (5-9) Ur Specific Gabriels (1.010-1.030) Urine Protein (Negative) Urine Ketones (Negative) Urine Blood (Negative) Urine Nitrate (Negative) Urine Bilirubin (Negative) Urine Urobilinogen (Negative) Ur Leukocyte Esterase (Negative) Urine Glucose (Negative) Serum Alcohol < 10 (<10) mg/dL 12/06/16 Range/Units 20:23 WBC (3.5-10.8) 10^3/ul RBC (4.0-5.4) 10^6/ul Hgb (12.0-16.0) g/dl Hct (35-47) % MCV (80-97) fL MCH (27-31) pg MCHC (31-36) g/dl RDW (10.5-15) % Plt Count (150-450) 10^3/ul MPV (7.4-10.4) um3 Neut % (Auto) (38-83) % Lymph % (Auto) (25-47) % Dewey % (Auto) (1-9) % Eos % (Auto) (0-6) % Baso % (Auto) (0-2) % Absolute Neuts (auto) (1.5-7.7) 10^3/ul Absolute Lymphs (auto) (1.0-4.8) 10^3/ul Absolute Monos (auto) (0-0.8) 10^3/ul Absolute Eos (auto) (0-0.6) 10^3/ul Absolute Basos (auto) (0-0.2) 10^3/ul Absolute Nucleated RBC 10^3/ul Nucleated RBC % INR (Anticoag Therapy) (0.89-1.11) APTT (26.0-36.3) seconds Sodium (133-145) mmol/L Potassium (3.5-5.0) mmol/L Chloride (101-111) mmol/L Carbon Dioxide (22-32) mmol/L Anion Gap (2-11) mmol/L BUN (6-24) mg/dL Creatinine (0.51-0.95) mg/dL Est GFR ( Amer) (>60) Est GFR (Non-Af Amer) (>60) BUN/Creatinine Ratio (8-20) Glucose (70-100) mg/dL Calcium (8.6-10.3) mg/dL Total Bilirubin (0.2-1.0) mg/dL AST (13-39) U/L ALT (7-52) U/L Alkaline Phosphatase (34-104) U/L Troponin I (<0.04) ng/mL Total Protein (6.4-8.9) g/dL Albumin (3.2-5.2) g/dL Globulin (2-4) g/dL Albumin/Globulin Ratio (1-3) Lipase (11.0-82.0) U/L Beta HCG, Quant mIU/mL Urine Color Straw Urine Appearance Clear Urine pH 8.0 (5-9) Ur Specific Gabriels > 1.060 H (1.010-1.030) Urine Protein Negative (Negative) Urine Ketones Negative (Negative) Urine Blood Negative (Negative) Urine Nitrate Negative (Negative) Urine Bilirubin Negative (Negative) Urine Urobilinogen Negative (Negative) Ur Leukocyte Esterase Negative (Negative) Urine Glucose Negative (Negative) Serum Alcohol (<10) mg/dL Result Diagrams: 12/06/16 16:10 12/06/16 16:10 Lab Statement: Any lab studies that have been ordered have been reviewed, and results considered in the medical decision making process. - CT ABD/PEL CT CT Interpretation: No Acute Changes - IMPRESSION: 1. NO EVIDENCE FOR ACUTE FINDING OR CAUSE FOR THE PATIENT'S ABDOMINAL PAIN IS SEEN. 2. SMALL HYPODENSE HEPATIC LESION UNCHANGED FROM THE PRIOR ULTRASOUND STUDY. THIS IS A NONSPECIFIC FINDING ALTHOUGH LIKELY REPRESENTS A HEMANGIOMA. RECOMMEND A FOLLOW-UP RIGHT UPPER QUADRANT ULTRASOUND IN 6 MONTHS TIME TO DEMONSTRATE STABILITY. ED physician reviewed this radiology report and agrees. CT Interpretation Completed By: Radiologist - EKG 8178 EKG Interpretation: Sinus arrythmia at 74 bpm GIGU Course/Dx - Course Course Of Treatment: A 31 y/o F presents to the ED c/o vomiting onset last night and ongoing all day after a large amount of ETOH consumption. Associate sx : diffuse abd pain, dry mouth, numbness in fingertips. PMHx of chronic vomiting and diarrhea, Salmonella. Pt given fluids, morphine, zofran in ED. Bloodwork and UA obtained. ABD/PEL CT shows no acute findings. pt feels better at present so will dc home. - Diagnoses Provider Diagnoses: Gastroenteritis Discharge - Discharge Plan Condition: Stable Disposition: HOME Prescriptions: Ondansetron ODT TAB* [Zofran 4 MG Odt TAB*] 4 mg PO Q8H PRN #20 tab.odt MDD 4 PRN Reason: Vomiting Patient Education Materials: Gastroenteritis (ED), Ondansetron (By mouth) Referrals: Darinel Hancock, COUNTER TENDER [Primary Care Provider] - 3 Days Additional Instructions: Follow up with your primary care physician in 3 days. Please return to the ED if you experience new or worsening symptoms. The documentation as recorded by the Makeda harris SooYoung accurately reflects the service I personally performed and the decisions made by , Paul Godinez.
[2016-12-06 21:17] VITALS: BP 106/41
== END 2016-12-06 20:55 | disposition home or self-care (01) ==
LOC: ED 15:37
DX: K52.9 Noninfective gastroenteritis and colitis, unspecified (principal); R19.7 Diarrhea, unspecified; F17.210 Nicotine dependence, cigarettes, uncomplicated; R11.10 Vomiting, unspecified
CPT/HCPCS: 36415; 74177; 80053; 80320; 81003; 83690; 84484; 84702; 85025; 85610; 85730; 93005; 96374; 96375; 99283; G0480; J2270; J2405; Q9967

== ENCOUNTER 2017-05-26 15:24 | Emergency (ER) | payer MEDICARE, MEDICAID ==
[2017-05-26 16:21] VITALS: BP 114/82
--- NOTE | 2017-05-26 17:07 | UC ---
Throat Pain/Nasal Anthony HPI - HPI Summary HPI Summary: [address], PAIN WITH SWALLOWING, FEVER, CHILL, ACHES. - History of Current Complaint Chief Complaint: UCGeneralIllness Stated Complaint: THROAT PAIN Time Seen by Provider: 05/26/17 16:58 Hx Obtained From: Patient Hx Last Menstrual Period: irregular Onset/Duration: Gradual Onset, Lasting Days, Still Present Severity: Moderate Pain Intensity: 8 Pain Scale Used: 0-10 Numeric Cough: Nonproductive Associated Signs & Symptoms: Positive: Fever - Allergies/Home Medications Allergies/Adverse Reactions: Allergies Allergy/AdvReac Type Severity Reaction Status Date / Time Penicillins Allergy Hives/Diff. Verified 05/26/17 16:22 Breathing/I tching Home Medications: Home Medications Acetaminophen [Tylenol Extra Strength] 05/26/17 [History] PMH/Surg Hx/FS Hx/Imm Hx - Additional Past Medical History Additional PMH: ALLERGIES Respiratory History: Asthma Psychological History: Anxiety Other History Of: Comment Only: Anticoagulant Therapy - Von Willenbrand's Syndrome - Surgical History Surgical History: Yes Surgery Procedure, Year, and Place: jaw wired bilateral 1996-REMOVED. CERVICAL BIOPSY. STOMACH BIOPSY. TEETH REMOVED - Family History Known Family History: Positive: Hypertension, Diabetes, Blood Disorder - Von Willebrand, Other - [place] - Social History Alcohol Use: Rare Substance Use Type: None Smoking Status (MU): Light Every Day Tobacco Smoker Type: Cigarettes Amount Used/How Often: 1/2 PPD Household Exposure Type: Cigarettes Review of Systems Constitutional: Fever, Chills ENT: Sore Throat Respiratory: Cough Cardiovascular: Negative Gastrointestinal: Negative Musculoskeletal: Myalgia All Other Systems Reviewed And Are Negative: Yes Physical Exam Triage Information Reviewed: Yes Appearance: Well-Appearing, No Pain Distress, Well-Nourished Vital Signs: Initial Vital Signs Temp 99.2 F 05/26/17 16:15 Pulse 75 05/26/17 16:15 Resp 16 05/26/17 16:15 BP 114/82 05/26/17 16:15 Pulse Ox 96 05/26/17 16:15 Vital Signs Reviewed: Yes Eyes: Positive: Conjunctiva Clear ENT: Positive: Hearing grossly normal, Pharyngeal erythema, TMs normal, Tonsillar exudate. Negative: Tonsillar swelling, Muffled voice, Hoarse voice Neck: Positive: Supple, Nontender, No Lymphadenopathy Respiratory Exam: Normal Cardiovascular Exam: Normal Abdomen Description: Positive: Soft Musculoskeletal: Positive: No Edema Neurological: Positive: Alert Psychological: Positive: Age Appropriate Behavior Skin: Negative: rashes Diagnostics - Laboratory Diagnostic Studies Completed/Ordered: STREP NEG Throat Pain/Nasal Course/Dx - Differential Dx/Diagnosis Provider Diagnoses: TONSILLITIS Discharge - Discharge Plan Condition: Stable Disposition: HOME Prescriptions: Acetaminop/Codeine 30 MG TAB* [Tylenol/Codeine 30 MG TAB*] 1 - 2 tab PO Q6H PRN #20 tab MDD 8 PRN Reason: Pain Magic Mouth Was-SILVIA/MAAL/LIDO* 5 - 10 ml SWISH SWAL QID PRN #150 ml PRN Reason: Sore Throat Patient Education Materials: Tonsillitis (ED) Referrals: Darinel Hancock ADMITTED ATTORNEYS [Primary Care Provider] - Additional Instructions: STREP NEG. YOUR SYMPTOMS ARE LIKELY VIRALLY MEDIATED AND SHOULD RESOLVE ON THEIR OWN WITH TIME. REST, HYDRATE, OTC MEDS NEEDED. SEEK FOLLOW-UP IF YOU ARE NOT IMPROVING OVER THE NEXT 1-2 WEEKS. OTC CHLORASEPTIC OR CEPACOL LOZENGES AND/OR IBUPROFEN FOR SORE THROAT NEEDED CALL THE NUMBER BELOW FOR ASSISTANCE IN ESTABLISHING WITH A PCP An additional resource available to assist in finding the appropriate physician for your health care needs is the [facility] ([facility]). You may contact them by calling [phone].
== END 2017-05-26 17:22 | disposition home or self-care (01) ==
LOC: UCEAST 15:24
DX: J03.90 Acute tonsillitis, unspecified (principal); R50.9 Fever, unspecified; J45.909 Unspecified asthma, uncomplicated; F41.9 Anxiety disorder, unspecified; D68.0 Von Willebrand disease; Z88.0 Allergy status to penicillin; F17.210 Nicotine dependence, cigarettes, uncomplicated
CPT/HCPCS: 87651; 99212; G0463

== ENCOUNTER 2017-06-03 16:05 | Emergency (ER) | payer MEDICAID, MEDICARE ==
[2017-06-03] MEDS ORDERED: Erythromycin TOPICAL GEL* 30 GM TUBE TOPICAL ONE (19:24)
[2017-06-03 20:58] VITALS: BP 122/79
--- NOTE | 2017-06-03 21:42 | ED ---
Throat Pain/Nasal Congestion - HPI Summary HPI Summary: Patient is a 32-year-old female who presents to the ED with chief complaint of red eye conjunctiva injection and right ear pain. She also states she has a sinus infection. She endorses sick contacts, specifically the flu. Endorses fevers, sweats, chills. She states she is sick "all the time" and daughter is sick as well. Denies any urinary symptoms or back pain. She is generally unhealthy, fairly sedentary lifestyle and does not eat well. She denies headache. She has not taken anything [id number] for relief. Symptoms are aggravated by nothing and relieved with nothing. She was seen last week in the urgent care and given Tylenol with Codeine. - History of Current Complaint Chief Complaint: EDGeneral Time Seen by Provider: 06/03/17 19:04 Hx Obtained From: Patient Onset/Duration: Sudden Onset Severity: Moderate Associated Signs And Symptoms: Positive: Negative - Epiglottits Risk Factors Epiglottis Risk Factors: Negative - Allergies/Home Medications Allergies/Adverse Reactions: Allergies Allergy/AdvReac Type Severity Reaction Status Date / Time Penicillins Allergy Hives/Diff. Verified 06/03/17 17:17 Breathing/I tching PMH/Surg Hx/FS Hx/Imm Hx Previously Healthy: Yes Endocrine/Hematology History: Reports: Other Endocrine/Hematological Disorders - Type 1 Von Willebrand Disease, PCOS Denies: Hx Diabetes, Hx Thyroid Disease Comment Only: Hx Anticoagulant Therapy - Von Willenbrand's Syndrome Cardiovascular History: Denies: Hx Congestive Heart Failure, Hx Hypertension, Hx Pacemaker/ICD Comment Only: Other Cardiovascular Problems/Disorders - brother dx with lung cancer Respiratory History: Reports: Hx Asthma, Hx Seasonal Allergies - uses anti- histamine, PO and nasal spray Denies: Hx Chronic Obstructive Pulmonary Disease (COPD) GI History: Reports: Hx Gastroesophageal Reflux Disease - Rx'd omeprazole , Other GI Disorders - salmomella GI infection, currently receiving anbx Denies: Hx Cirrhosis, Hx Crohn's Disease, Hx Diverticulosis, Hx Gall Bladder Disease, Hx Gastrointestinal Bleed, Hx Hiatal Hernia, Hx Irritable Bowel, Hx Jaundice, Hx Obstructive Bowel, Hx Ileostomy, Hx Ulcer History: Denies: Hx Dialysis, Hx Kidney Infection, Hx Kidney Stones, Hx Renal Disease Musculoskeletal History: Reports: Hx Scoliosis Sensory History: Denies: Hx Hearing Aid Neurological History: Reports: Hx Headaches - rx'd med but hasn't started yet Denies: Hx Dementia, Hx Seizures, Other Neuro Impairments/Disorders Psychiatric History: Reports: Hx Panic Disorder - SEVERE ANXIETY Denies: Hx Substance Abuse - Surgical History Surgery Procedure, Year, and Place: jaw wired bilateral 1996-REMOVED. CERVICAL BIOPSY. STOMACH BIOPSY. TEETH REMOVED - Immunization History Hx Pertussis Vaccination: No Immunizations Up to Date: Unable to Obtain/Confirm Infectious Disease History: No Infectious Disease History: Denies: Hx Clostridium Difficile, Hx Hepatitis, Hx Human Immunodeficiency Virus (HIV), Hx of Known/Suspected MRSA, Hx Shingles, Hx Known/Suspected VRE, Traveled Outside the [place] in Last 30 Days - Family History Known Family History: Positive: Hypertension, Diabetes, Blood Disorder - Von Willebrand, Other - [place] - Social History Occupation: Unemployed Lives: With Family Alcohol Use: Rare Hx Substance Use: No Substance Use Type: Reports: None Hx Tobacco Use: Yes Smoking Status (MU): Light Every Day Tobacco Smoker Type: Cigarettes Amount Used/How Often: 1/2 PPD Review of Systems Constitutional: Negative Negative: Fever, Chills, Fatigue, Skin Diaphoresis Positive: Erythema. Negative: Photophobia, Blurred Vision, Diplopia, Drainage Cardiovascular: Negative Genitourinary: Negative Positive: no symptoms reported, see HPI Musculoskeletal: Negative Neurological: Negative All Other Systems Reviewed And Are Negative: Yes Physical Exam Triage Information Reviewed: Yes Vital Signs On Initial Exam: Initial Vitals Temp Pulse Resp BP Pulse Ox 97.5 F 107 16 123/88 99 06/03/17 16:14 06/03/17 16:14 06/03/17 16:14 06/03/17 16:14 06/03/17 16:14 Vital Signs Reviewed: Yes Appearance: Positive: Well-Appearing, Well-Nourished Skin: Positive: Warm, Skin Color Reflects Adequate Perfusion Head/Face: Positive: Normal Head/Face Inspection Eyes: Positive: EOMI, CLAUDIA, Conjunctiva Clear Neck: Positive: Supple, No Lymphadenopathy Respiratory/Lung Sounds: Positive: Clear to Auscultation, Breath Sounds Present Cardiovascular: Positive: RRR, Pulses are Symmetrical in both Upper and Lower Extremities Musculoskeletal: Positive: Strength/ROM Intact Neurological: Positive: Speech Normal Psychiatric: Positive: Normal, Affect/Mood Appropriate AVPU Assessment: Alert Diagnostics - Vital Signs Vital Signs Temp Pulse Resp BP Pulse Ox 06/03/17 20:56 98.4 F 83 12 122/79 98 06/03/17 16:14 97.5 F 107 16 123/88 99 - Laboratory Lab Results: Lab Results 06/03/17 Range/Units 20:02 Influenza A (Rapid) Negative (Negative) Influenza B (Rapid) Negative (Negative) Lab Statement: Any lab studies that have been ordered have been reviewed, and results considered in the medical decision making process. EENT Course/Dx - Course Course Of Treatment: During the course of treatment, the patient is evaluated for upper respiratory symptoms versus sinus infection versus conjunctivitis. There is conjunctival injection of the right eye. TM without bulging or erythema or signs of infection bilaterally. Pharynx nonerythematous and patent. No signs of infection. Sinus pressure to the frontal sinuses sparing the maxillary sinuses. Patient states she would like an antibiotic. While awaiting the flu swab, she becomes very agitated and states she would like to leave. She is given doxycycline and she is allergic to penicillins for a sinus infection, she is given ophthalmic drops for the right eye for conjunctivitis. - Differential Diagnoses Differential Diagnoses: URI/Bronchitis - Diagnoses Provider Diagnoses: Sinusitis, Conjunctivitis Discharge - Discharge Plan Condition: Stable Disposition: HOME Prescriptions: DOXYcycline CAP(*) [DOXYcycline 100MG CAP(*)] 100 mg PO BID #10 cap Loratadine [Claritin 10 MG CAP] 10 mg PO DAILY #15 cap Polymyx/Trimethoprim OPTH* [Polytrim OPHTH*] 1 drop RIGHT EYE Q3H #1 btl Referrals: Darinel Hancock NP [Primary Care Provider] -
== END 2017-06-03 20:58 | disposition home or self-care (01) ==
LOC: ED 16:05
DX: J32.9 Chronic sinusitis, unspecified (principal); H10.9 Unspecified conjunctivitis; F17.210 Nicotine dependence, cigarettes, uncomplicated
CPT/HCPCS: 87502; 87651; 99282

== ENCOUNTER 2019-01-03 19:37 | Emergency (ER) | payer MEDICARE, MEDICAID ==
[2019-01-03 20:33] LABS: Urine Appearance Clear; Urine Bacteria Absent (Absent); Urine Bilirubin Negative (Negative); Urine Blood 1+ (Negative); Urine Color Colorless; Urine Glucose Negative (Negative); Urine Ketones Negative (Negative); Urine Nitrite Negative (Negative); Urine Protein Negative (Negative); Urine Red Blood Cell Trace(0-2/hpf) (Absent); Urine Specific Gravity 1.001 (1.010-1.030); Urine Urobilinogen Negative (Negative); Urine White Blood Cell Trace(0-5/hpf) (Absent)
[2019-01-03 20:48] LABS: ABS Basophils 0.1 10^3/ul (0-0.2); ABS Eosinophils 0.1 10^3/ul (0-0.6); ABS Lymphocytes 1.5 10^3/ul (1.0-4.8); ABS Monocytes 0.5 10^3/ul (0-0.8); ABS Neutrophils 6.9 10^3/ul (1.5-7.7); Eosinophil % 0.9 %; Hematocrit 41 % (35-47); Hemoglobin 13.8 g/dL (12.0-16.0); Lymphocyte % 16.7 %; Mean Corpuscular HGB Conc 34 g/dL (31-36); Mean Corpuscular Hemoglobin 31 pg (27-31); Mean Corpuscular Volume 93 fL (80-97); Mean Platelet Volume 7.3 fL (7.4-10.4); Platelet Count 291 10^3/uL (150-450); Red Blood Count 4.41 10^6 /uL (3.70-4.87); Red Cell Distribution Width 14 % (10-15); White Blood Count 9.1 10^3/uL (3.5-10.8)
[2019-01-03 20:52] LABS: Urine Benzodiazepine Screen None Detected (None Detect); Urine Opiates Screen None Detected (None Detect)
[2019-01-03 21:07] LABS: ALT 6 U/L (7-52); AST 12 U/L (13-39); Albumin 4.1 g/dL (3.2-5.2); Albumin/Globulin Ratio 1.6 (1-3); Alkaline Phosphatase 106 U/L (34-104); Anion Gap 12 mmol/L (2-11); BUN/Creatinine Ratio 6.2 (8-20); Blood Urea Nitrogen 4 mg/dL (6-24); CO2 Carbon Dioxide 21 mmol/L (22-32); Calcium 8.9 mg/dL (8.6-10.3); Chloride 109 mmol/L (101-111); EGFR African American 126.3 (>60); EGFR Non-African American 104.3 (>60); Globulin 2.5 g/dL (2-4); Glucose 117 mg/dL (70-100); Sodium 142 mmol/L (135-145); Total Protein 6.6 g/dL (6.4-8.9)
[2019-01-03] MEDS ORDERED: Butalb/Acetamin/Caff TAB* 1 TAB PO ONE (21:10)
[2019-01-03] MEDS ORDERED: Potassium Chlor TAB* 20 MEQ TAB.ER PO ONE (21:10)
[2019-01-03 21:13] LABS: HCG Pregnancy 0.69 mIU/mL
[2019-01-03] MEDS ORDERED: Tetan/Diph/Pertus SYR(Tdap)* 0.5 ML SYR(BOOSTRIX) use SYR contains LATEX IM ONE (21:21)
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
[2019-01-03 21:28] LABS: Acetaminophen < 15 mcg/mL; Alcohol 28 mg/dL (<10); Salicylate < 2.50 mg/dL (<30)
[2019-01-03 21:41] LABS: HIV 4th Generation Nonreactive (Nonreactive)
[2019-01-03 21:43] LABS: TSH (Thyroid Stimulating Horm) 0.64 mcIU/mL (0.34-5.60)
[2019-01-03 22:42] LABS: Hepatitis C Antibody Negative (Negative)
[2019-01-04] MEDS ORDERED: Haloperidol INJ IV/IM* 5 MG/ML AMP IM ONE (00:46)
[2019-01-04] MEDS ORDERED: Midazolam* 1 MG/ML 2 ML VIAL (2 MG) IM ONE (00:46)
[2019-01-04] MEDS ORDERED: diPHENhydraMINE PO* 25 MG PO ONE (02:18)
[2019-01-04] MEDS ORDERED: Ondansetron ODT TAB* 4 MG PO ONE (02:18)
[2019-01-04] MEDS ORDERED: Nicotine PATCH 21 MG/24 HR* PATCH TRANSDERM ONE (02:53)
[2019-01-04] MEDS ORDERED: Iohexol 300* (CONTRAST) 10 ML SDV IV ONE (03:01)
--- NOTE | 2019-01-04 07:22 | ED ---
Progress - Progress Note Progress Note: This pt was received as a sign out from Dr. Hernandez to Dr. Zurita pending mental health evaluation. Re-Evaluation - Re-Evaluation 1st re-eval Re-Evaluation Time: 00:46 Change: Worse Comment: Pt refusing further MHE. She is slamming doors and being aggressive w/ staff. Attempted de-escalation, however pt is telling people to get the f out of her way. Therefore may have to chemically sedate her. Pt will be moved back to ED. 2nd re-eval Re-Evaluation Time: 02:48 Comment: Pt is presently vomiting at bedside. 3rd re-eval Re-Evaluation Time: 06:00 Change: Unchanged Comment: Pt will be MH hold to obtain collateral. She will be signed out at shift change to Dr. Zurita. Course/Dx - Course Course Of Treatment: This pt was signed out by Dr. Hernandez pending mental health evaluation. Kwadwo, mental health menu planner, obtained collateral from pt' s friend. Per Kwadwo pt's case was reviewed by Dr. Woods, psychiatrist, and Dr. Woods cleared the pt for discharge. Pt is already on the waiting list at [facility]. Dx: depression. - Diagnoses Provider Diagnoses: Depression Discharge ED - Sign-Out/Discharge Documenting (check all that apply): Patient Departure - Discharge home, Receiving Sign-Out Receiving patient FROM: Ericka Hernandez Patient Received Moderate/Deep Sedation with Procedure: No - Discharge Plan Condition: Stable Disposition: HOME Referrals: Darinel Hancock, LANDSCAPE MANAGER [Primary Care Provider] - - Billing Disposition and Condition Condition: STABLE Disposition: Home - Attestation Statements Document Initiated by Scribe: Yes Documenting Scribe: Lois Alatorre Provider For Whom Trenaibshailesh is Documenting (Include Credential): Xavier Zurita MD Scribe Attestation: Lois Heller scribed for Xavier Zurita MD on 01/04/19 at 1906. Scribe Documentation Reviewed: Yes Provider Attestation: The documentation as recorded by the Lois harris accurately reflects the service I personally performed and the decisions made by me, Xavier Zurita MD Status of Scribe Document: Viewed
[2019-01-04] MEDS ORDERED: Nicotine* 4MG (FRUIT FLAVOR) GUM PO PRN (07:45)
[2019-01-04] MEDS ORDERED: Nicotine* 2MG (FRUIT FLAVOR) GUM PO ONE (07:45)
[2019-01-04 12:04] VITALS: BP 116/70
== END 2019-01-04 12:00 | disposition home or self-care (01) ==
LOC: ED 19:37
DX: F32.9 Major depressive disorder, single episode, unspecified (principal); F39 Unspecified mood [affective] disorder; F17.210 Nicotine dependence, cigarettes, uncomplicated; R50.9 Fever, unspecified; R53.83 Other fatigue; R10.9 Unspecified abdominal pain; R11.2 Nausea with vomiting, unspecified; F41.9 Anxiety disorder, unspecified; Z88.0 Allergy status to penicillin; Z79.01 Long term (current) use of anticoagulants; K21.9 Gastro-esophageal reflux disease without esophagitis
CPT/HCPCS: 36415; 71046; 74177; 80053; 80307; 80320; 80329; 81003; 81015; 84443; 84702; 85025; 86803; 87086; 87389; 90471; 90715; 99284; A9270-GY; G0480; J1630; J2250; Q9967

== ENCOUNTER 2019-03-15 16:54 | Emergency (ER) | payer MEDICARE, MEDICAID ==
[2019-03-15 17:57] LABS: ABS Basophils 0.1 10^3/ul (0-0.2); ABS Eosinophils 0.2 10^3/ul (0-0.6); ABS Monocytes 0.4 10^3/ul (0-0.8); ABS Neutrophils 3.9 10^3/ul (1.5-7.7); Eosinophil % 3.4 %; Hematocrit 41 % (35-47); Hemoglobin 13.6 g/dL (12.0-16.0); Lymphocyte % 30.7 %; Mean Corpuscular HGB Conc 34 g/dL (31-36); Mean Corpuscular Hemoglobin 31 pg (27-31); Mean Corpuscular Volume 92 fL (80-97); Mean Platelet Volume 6.9 fL (7.4-10.4); Platelet Count 328 10^3/uL (150-450); Red Blood Count 4.39 10^6 /uL (3.70-4.87); Red Cell Distribution Width 14 % (10-15); White Blood Count 6.5 10^3/uL (3.5-10.8)
[2019-03-15 18:33] LABS: HCG Pregnancy < 0.60 mIU/mL
[2019-03-15 18:37] LABS: ALT 4 U/L (7-52); AST 10 U/L (13-39); Albumin 4.1 g/dL (3.2-5.2); Albumin/Globulin Ratio 1.5 (1-3); Alkaline Phosphatase 95 U/L (34-104); Anion Gap 3 mmol/L (2-11); Blood Urea Nitrogen 6 mg/dL (6-24); C Reactive Protein 2.56 mg/L (<8.01); CO2 Carbon Dioxide 27 mmol/L (22-32); Calcium 8.8 mg/dL (8.6-10.3); Chloride 109 mmol/L (101-111); EGFR African American 137.7 (>60); EGFR Non-African American 113.8 (>60); Globulin 2.7 g/dL (2-4); Glucose 85 mg/dL (70-100); Potassium 3.3 mmol/L (3.5-5.0); Sodium 139 mmol/L (135-145); Total Protein 6.8 g/dL (6.4-8.9)
[2019-03-15 19:02] LABS: Urine Appearance Cloudy; Urine Bilirubin Negative (Negative); Urine Blood Negative (Negative); Urine Color Yellow; Urine Glucose Negative (Negative); Urine Ketones Negative (Negative); Urine Nitrite Negative (Negative); Urine Protein Negative (Negative); Urine Specific Gravity 1.004 (1.010-1.030); Urine Urobilinogen Negative (Negative)
--- NOTE | 2019-03-15 20:26 | ED ---
Abdominal Pain/Female - HPI Summary HPI Summary: The patient is a 34 y/o F presenting to [facility] with a chief complaint of worsening LLQ, left flank, and left low back pain today. She reports that shes had GI issues for the last 2-3 years without any clear diagnosis, and the episodes have recently been worse than usual. Since last month, she has had a decreased appetite with nausea and vomiting, and she has lost about 10-15lbs since then because she is unable to hold solids. She also has had intermittent episodes of dizziness and weakness where she will occasionally have a syncopal episode with LOC. She had one of these episodes today, and she had severe abdominal pain as well. She endorses cycles of watery diarrhea and constipation with last BM two days ago. She states urinary retention without any pelvic pain. Currently, her symptoms are rated 9/10 in severity. She has seen a tractor mechanic apprentice and had an endoscopy without findings. Irregular menstrual cycle. PMHx: Type 1 Von Willebrand Disease, PCOS, asthma, GERD, scoliosis, headaches, panic disorder. Light every day smoker, rare EtOH, no substance use. Medications reviewed. Allergies noted. - History of Current Complaint Chief Complaint: EDAbdPain Stated Complaint: ABDOMINAL/BACK PAIN AND SYNCOPE PER PT Time Seen by Provider: 03/15/19 19:56 Hx Obtained From: Patient Hx Last Menstrual Period: irregular Onset/Duration: Lasting Days, Still Present, Worse Since - today Timing: Intermittent Episode Lasting - hours or days Severity Initially: Severe Severity Currently: Severe Pain Intensity: 9 Pain Scale Used: 0-10 Numeric Location: Discrete At: LLQ, Flank - left Radiates: Yes Radiates to: Back - low left Character: Sharp Aggravating Factor(s): Nothing Alleviating Factor(s): Nothing Associated Signs and Symptoms: Positive: Dizzy, Constipation, Decreased Appetite , Nausea, Vomiting, Diarrhea, Other: - urinary retention, syncope with LOC, weakness; Negative: pelvic pain Allergies/Adverse Reactions: Allergies Allergy/AdvReac Type Severity Reaction Status Date / Time Penicillins Allergy Hives/Diff. Verified 03/15/19 17:08 Breathing/I tching Home Medications: Home Medications Acetaminophen [Tylenol Extra Strength] 1,000 mg PO Q8H PRN 03/15/19 [History Confirmed 03/15/19] PMH/Surg Hx/FS Hx/Imm Hx Endocrine/Hematology History: Reports: Other Endocrine/Hematological Disorders - Type 1 Von Willebrand Disease, PCOS Denies: Hx Diabetes, Hx Thyroid Disease Comment Only: Hx Anticoagulant Therapy - Von Willenbrand's Syndrome Cardiovascular History: Denies: Hx Congestive Heart Failure, Hx Hypertension, Hx Pacemaker/ICD Comment Only: Other Cardiovascular Problems/Disorders - brother dx with lung cancer Respiratory History: Reports: Hx Asthma, Hx Seasonal Allergies - uses anti- histamine, PO and nasal spray Denies: Hx Chronic Obstructive Pulmonary Disease (COPD) GI History: Reports: Hx Gastroesophageal Reflux Disease - Rx'd omeprazole , Other GI Disorders - salmomella GI infection, currently receiving anbx Denies: Hx Cirrhosis, Hx Crohn's Disease, Hx Diverticulosis, Hx Gall Bladder Disease, Hx Gastrointestinal Bleed, Hx Hiatal Hernia, Hx Irritable Bowel, Hx Jaundice, Hx Obstructive Bowel, Hx Ileostomy, Hx Ulcer History: Denies: Hx Dialysis, Hx Kidney Infection, Hx Kidney Stones, Hx Renal Disease Musculoskeletal History: Reports: Hx Scoliosis Neurological History: Reports: Hx Headaches - rx'd med but hasn't started yet Denies: Hx Dementia, Hx Seizures, Other Neuro Impairments/Disorders Psychiatric History: Reports: Hx Panic Disorder - SEVERE ANXIETY, Hx of Violent Episodes Against Others Denies: Hx Eating Disorder, Hx Substance Abuse - Surgical History Surgical History: Yes Surgery Procedure, Year, and Place: jaw wired bilateral 1996-REMOVED. CERVICAL BIOPSY. STOMACH BIOPSY. TEETH REMOVED Infectious Disease History: No Infectious Disease History: Denies: Hx Clostridium Difficile, Hx Hepatitis, Hx Human Immunodeficiency Virus (HIV), Hx of Known/Suspected MRSA, Hx Shingles, Hx Known/Suspected VRE, Traveled Outside the [place] in Last 30 Days - Family History Known Family History: Positive: Hypertension, Diabetes, Blood Disorder - Von Willebrand, Other - [place] - Social History Alcohol Use: Rare Hx Substance Use: No Substance Use Type: Reports: None Hx Tobacco Use: Yes Smoking Status (MU): Light Every Day Tobacco Smoker Type: Cigarettes Amount Used/How Often: 1/2 PPD Review of Systems Positive: Abdominal Pain - LLQ, Vomiting, Diarrhea - watery, Nausea Positive: flank pain - left, other - urinary retention; Negative: pelvic pain Positive: Other - left low back pain Neurological: Other - dizziness Positive: Weakness - generalized, Syncope - with LOC All Other Systems Reviewed And Are Negative: Yes Physical Exam - Summary Physical Exam Summary: Constitutional: Well-developed, Well-nourished, Alert. (-) Distressed Skin: Warm, Dry HENT: Normocephalic; Atraumatic Eyes: Conjunctiva normal Neck: Musculoskeletal ROM normal neck. (-) JVD, (-) Stridor, (-) Nuchal rigidity Cardio: Rhythm regular, rate normal, Heart sounds normal; Intact distal pulses; Radial pulses are 2+ and symmetric. (-) Murmur Pulmonary/Chest wall: Effort normal. (-) Respiratory distress, (-) Wheezes, (-) Rales Abd: Soft, (+) mild LLQ and left flank tenderness, (-) Distension, (-) Guarding , (-) Rebound Musculoskeletal: (-) Edema Lymph: (-) Cervical adenopathy Neuro: Alert, Oriented x3 Psych: Mood and affect Normal Triage Information Reviewed: Yes Vital Signs On Initial Exam: Initial Vitals Temp Pulse Resp BP Pulse Ox 98.2 F 101 16 106/82 98 03/15/19 17:03 03/15/19 17:03 03/15/19 17:03 03/15/19 17:03 03/15/19 17:03 Vital Signs Reviewed: Yes Procedures - Sedation Patient Received Moderate/Deep Sedation with Procedure: No Diagnostics - Vital Signs Vital Signs Temp Pulse Resp BP Pulse Ox 03/15/19 18:42 97.7 F 77 16 111/56 99 03/15/19 17:03 98.2 F 101 16 106/82 98 - Laboratory Lab Results: Lab Results 03/15/19 03/15/19 03/15/19 Range/Units 17:50 17:50 18:36 WBC 6.5 (3.5-10.8) 10^3/uL RBC 4.39 (3.70-4.87) 10^6 /uL Hgb 13.6 (12.0-16.0) g/dL Hct 41 (35-47) % MCV 92 (80-97) fL MCH 31 (27-31) pg MCHC 34 (31-36) g/dL RDW 14 (10-15) % Plt Count 328 (150-450) 10^3/uL MPV 6.9 L (7.4-10.4) fL Neut % (Auto) 59.4 % Lymph % (Auto) 30.7 % [place] % (Auto) 5.6 % Eos % (Auto) 3.4 % Baso % (Auto) 0.9 % Absolute Neuts (auto) 3.9 (1.5-7.7) 10^3/ul Absolute Lymphs (auto) 2.0 (1.0-4.8) 10^3/ul Absolute Monos (auto) 0.4 (0-0.8) 10^3/ul Absolute Eos (auto) 0.2 (0-0.6) 10^3/ul Absolute Basos (auto) 0.1 (0-0.2) 10^3/ul Absolute Nucleated RBC 0.0 10^3/ul Nucleated RBC % 0.0 Sodium 139 (135-145) mmol/L Potassium 3.3 L (3.5-5.0) mmol/L Chloride 109 (101-111) mmol/L Carbon Dioxide 27 (22-32) mmol/L Anion Gap 3 (2-11) mmol/L BUN 6 (6-24) mg/dL Creatinine 0.60 (0.51-0.95) mg/dL Est GFR ( Amer) 137.7 (>60) Est GFR (Non-Af Amer) 113.8 (>60) BUN/Creatinine Ratio 10.0 (8-20) Glucose 85 (70-100) mg/dL Calcium 8.8 (8.6-10.3) mg/dL Total Bilirubin 0.70 (0.2-1.0) mg/dL AST 10 L (13-39) U/L ALT 4 L (7-52) U/L Alkaline Phosphatase 95 (34-104) U/L C-Reactive Protein 2.56 (<8.01) mg/L Total Protein 6.8 (6.4-8.9) g/dL Albumin 4.1 (3.2-5.2) g/dL Globulin 2.7 (2-4) g/dL Albumin/Globulin Ratio 1.5 (1-3) Lipase 64 (11.0-82.0) U/L Beta HCG, Quant < 0.60 mIU/mL Urine Color Yellow Urine Appearance Cloudy Urine pH 7.0 (5-9) Ur Specific [place] 1.004 L (1.010-1.030) Urine Protein Negative (Negative) Urine Ketones Negative (Negative) Urine Blood Negative (Negative) Urine Nitrate Negative (Negative) Urine Bilirubin Negative (Negative) Urine Urobilinogen Negative (Negative) Ur Leukocyte Esterase Negative (Negative) Urine Glucose Negative (Negative) Result Diagrams: 03/15/19 17:50 03/15/19 17:50 Lab Statement: Any lab studies that have been ordered have been reviewed, and results considered in the medical decision making process. - EKG No standard instances Cardiac Rate: NL EKG Rhythm: Sinus Rhythm ST Segment: Normal Ectopy: None EKG Comparison: No Significant Change Summary of EKG Findings: 22:31 sinus rate of 69, no significant changes from prior. Re-Evaluation - Re-Evaluation First Eval Re-Evaluation Time: 21:00 Comment: We discussed plan for treatment; instead of ordering a CT, we will order an US Second Eval Change: Improved - TVUS neg, patient got IVF feels better. EKG sinus. Plan for GI follow up. Return for worsening symptoms. Abdominal Pain Fem Course/Dx - Course Course Of Treatment: 34 y/o F w hx chronic GI problems, ovarian cyst, anxiety p/ w to left-sided abdominal pain and vomiting and weight loss. - Has had the symptoms for 2 years reports increasing severity and lightheadedness and syncopal event. Suspecy syncopal event secondary to vasovagal. Patient had a negative CT scan 2 months ago with similar symptoms, patient that since her symptoms have not significantly changed, there is an indication to repeat CT here. Plan for a transvaginal ultrasound and lower abdominal pain however lower suspicion for ovarian pathology. Patient is a mildly tachycardic 101 on arrival, given IV fluids. Suspect secondary to poor by mouth intake. Labs with mild hypokalemia, repleted. No evidence of infection, stable hemoglobin. negative. Urine w/o infection. - Diagnoses Provider Diagnoses: LLQ pain, Nausea & vomiting Discharge ED - Sign-Out/Discharge Documenting (check all that apply): Patient Departure - Discharge Plan Condition: Stable Disposition: HOME Prescriptions: Cyclobenzaprine TAB* [Flexeril 10 MG TAB*] 10 mg PO TID PRN 4 Days #12 tab PRN Reason: Pain - Moderate Metoclopramide TAB* [Reglan TAB*] 5 mg PO Q6H 3 Days #12 tab Patient Education Materials: Acute Nausea and Vomiting (ED), Abdominal Pain (ED ) Referrals: Maye Aguila MD [Medical Doctor] - 1 Week (for vomiting) Vivian Gonsalves MD [Medical Doctor] - (for cyst ) Darinel Hancock NP [Primary Care Provider] - 3 Days Additional Instructions: You were seen in the emergency department for nausea, vomiting, left abdominal pain. Your labs do not show any cause for this pain. Your ultrasound showed a right ovarian cyst for which you can follow up with gynecology for. Please follow up with our gastroenterology doctors. Please take Reglan as needed for nausea. Please follow up with your primary care doctor in the next 2-3 days and return to the emergency department for worsening pain, fevers, inability to eat or drink, or concerning symptoms. It was a pleasure taking care of you today. - Billing Disposition and Condition Condition: STABLE Disposition: Home - Attestation Statements Document Initiated by Gaby: Yes Documenting Scribe: Keturah Calvert Provider For Whom Gaby is Documenting (Include Credential): Dr. Ericka Hernandez MD Scribe Attestation: IKeturah, scribed for Dr. Ericka Hernandez MD on 03/15/19 at 2245. Scribe Documentation Reviewed: Yes Provider Attestation: The documentation as recorded by the Keturah harris accurately reflects the service I personally performed and the decisions made by me, Dr. Ericka Hernandez MD Status of Scribe Document: Viewed
[2019-03-15] MEDS ORDERED: NS 0.9% 1000 ML** 1,000 ML IV ONE (20:28)
[2019-03-15] MEDS ORDERED: Metoclopramide TAB* 10 MG PO ONE (20:49)
[2019-03-15] MEDS ORDERED: Cyclobenzaprine TAB* 10 MG PO ONE (21:43)
[2019-03-15] MEDS ORDERED: Ketorolac INJ* 30 MG/ML 1 ML VIAL IV ONE (21:43)
[2019-03-15] MEDS ORDERED: Potassium Chlor TAB* 20 MEQ TAB.ER PO ONE (22:15)
[2019-03-15 23:06] VITALS: BP 134/78
== END 2019-03-15 22:59 | disposition home or self-care (01) ==
LOC: ED 16:54
DX: R10.32 Left lower quadrant pain (principal); R11.2 Nausea with vomiting, unspecified; D68.0 Von Willebrand disease; E28.2 Polycystic ovarian syndrome; J45.909 Unspecified asthma, uncomplicated; K21.9 Gastro-esophageal reflux disease without esophagitis; F17.210 Nicotine dependence, cigarettes, uncomplicated; F41.9 Anxiety disorder, unspecified; Z88.0 Allergy status to penicillin
CPT/HCPCS: 36415; 76830; 80053; 81003; 83690; 84702; 85025; 86140; 93005; 96361; 96374; 99283; A9270-GY; J1885